=== PATIENT | male | born 1940 | race Caucasian/White ===

== ENCOUNTER → 2017-08-21 | Outpatient (CLI) | payer MEDICARE ==
--- NOTE | 2017-08-21 11:54 | CT ---
EXAMINATION TYPE: CT abdomen pelvis w con DATE OF EXAM: 08/21/2017 COMPARISON: NONE HISTORY: Patient complains of periumbilical to RUQ pain and constipation. CT DLP: 1618 mGycm Automated exposure control for dose reduction was used. TECHNIQUE: Helical acquisition of images from the lung bases through the pelvis have been completed. CONTRAST: Performed with Oral Contrast and with IV Contrast, patient injected with 100 mL of Omnipaque 300. FINDINGS: There is no pleural or pericardial effusion. There are coronary artery calcifications prese nt. LUNG BASES: Some minimal dependent atelectatic changes are present. AORTA: No significant abnormality is appreciated. LIVER/GB: There are multiple hypodense foci scattered within the liver which are subcentimeter in siz e, approximately 10 foci, these are statistically likely represent cysts. Gallbladder is normal. PANCREAS: No significant abnormality is seen. SPLEEN: No significant abnormality is seen. ADRENALS: No significant abnormality is seen. KIDNEYS: There is a cortical cyst in the anterior aspect of the mid to lower pole of the left kidney measuring 2.2 cm. Cystic focus extending along the renal pelvis may represent a parapelvic cyst on th e left. Difficult to exclude a luminal abnormality at the upper pole calyx seen on axial image 39 and 38 measuring only 1 to 2 mm in size, this could be artifact REPRODUCTIVE ORGANS: Prostate is enlarged and shows associated calcification. BOWEL: No significant abnormality is seen. The appendix is normal. Scattered diverticular changes as sociated with the descending and sigmoid colon. Possible small inguinal hernias left greater than rig ht. Contrast courses into the proximal ascending colon shows a somewhat shelf like pattern. FREE AIR: No Free Air visible. ASCITES: None visible. Small umbilical hernia contains fat. PELVIC ADENOPATHY: None visualized. RETROPERITONEAL ADENOPATHY: No Retroperitoneal Adenopathy visible. URINARY BLADDER: Urinary bladder shows a thickened wall likely due to chronic outlet obstruction, di fficult to exclude a mucosal lesion. OSSEOUS STRUCTURES: Degenerative disc changes are present in the visualized spine, vacuum phenomenon present at L5-S1, facet arthropathy at the lower lumbar levels.. IMPRESSION: SOMEWHAT UNUSUAL APPEARANCE OF THE CONTRAST COURSING TO THE PROXIMAL DESCENDING COLON MAY BE RELATED TO LOCAL STOOL, DIFFICULT TO EXCLUDE A MUCOSAL LESION, BOWEL SURVEILLANCE HAS NOT BEEN PERFORMED THEN IT SHOULD BE CONSIDERED. FINDINGS IN THE KIDNEY DESCRIBED ON THE LEFT, CONSIDER FOLLOW-UP DEDICAT ED IMAGING. Diverticulosis. Prostatic enlargement and findings in the urinary bladder is described. A dditional findings above.
== END | disposition home or self-care (01) ==
LOC: RADCTMAIN 09:29
PROVIDERS: ATTEND Internal Medicine
DX: K57.90 Diverticulosis of intestine, part unspecified, without perforation or abscess without bleeding (principal); N32.89 Other specified disorders of bladder; N40.0 Benign prostatic hyperplasia without lower urinary tract symptoms
CPT/HCPCS: 74177; Q9967

== ENCOUNTER 2017-09-10 09:42 | Day surgery (SDC) | payer MEDICARE ==
[2017-09-08 13:18] VITALS: BMI 27.0
[~2017-09-10 09:42] MED LIST: LACTATED RINGERS 1,000 ML IV SCH; LIDOCAINE 1% 20 ML VIAL (10MG/ML) FOR IV START INTRADERMA PRN
[2017-09-10 10:25] VITALS: TEMP 97.1
[2017-09-10] MEDS ORDERED: LIDOCAINE 1% 20 ML VIAL (10MG/ML) FOR IV START INTRADERMA ONE (10:37)
[2017-09-10] MEDS ORDERED: PROPOFOL 10 MG/ML 20 ML VIAL IV ONE (11:00)
[2017-09-10] MEDS ORDERED: LIDOCAINE 1% INJ 10MG/ML (20 ML MDV) ONE (11:00)
--- NOTE | 2017-09-10 11:17 | P.PCN ---
Date of Procedure: 09/10/17 Procedure(s) Performed: BRIEF HISTORY: Patient is a 77-year-old pleasant white male, scheduled for an elective colonoscopy as a part of evaluation of prior history of colon polyps. His last colonoscopy was 5 years. PROCEDURE PERFORMED: Colonoscopy. PREOPERATIVE DIAGNOSIS: History of colon polyps. IV sedation per Anesthesia. PROCEDURE: After informed consent was obtained, the patient, was brought into the endoscopy unit. IV sedation was administered by Anesthesia under continuous monitoring. Digital rectal examination was normal. Initially the Olympus CF- 160 flexible video colonoscope was then inserted in the rectum, gradually advanced into the cecum without any difficulty. Careful examination was performed as the scope was gradually being withdrawn. Ileocecal valve and the appendiceal orifice were visualized and appeared normal. Prep was excellent. Mucosa of the cecum, ascending colon, transverse colon, descending colon, sigmoid colon, and rectum appeared normal. Scattered sigmoidal diverticulosis seen.Retroflexion was performed in the rectum and no lesions were seen. The patient tolerated the procedure well. IMPRESSION: Normal-appearing colon from rectum to cecum with no evidence of colorectal neoplasia. Scattered sigmoidal diverticulosis. RECOMMENDATIONS: Findings of this examination were discussed with the patient as well as his family. He was advised to fhave a repeat surveillance colonoscopy in 5 years because of the prior history of colon polyps.
[2017-09-10 11:24] VITALS: RESP 16
[2017-09-10 12:04] VITALS: BP 151/80; PULSE 68
== END 2017-09-10 12:12 | disposition home or self-care (01) ==
LOC: ORWHC2ENDO 09:42
PROVIDERS: ATTEND Internal Medicine Gastroenterology
DX: Z12.11 Encounter for screening for malignant neoplasm of colon (principal); Z86.010 Personal history of colon polyps; K57.30 Diverticulosis of large intestine without perforation or abscess without bleeding; I10 Essential (primary) hypertension; E78.5 Hyperlipidemia, unspecified; N40.0 Benign prostatic hyperplasia without lower urinary tract symptoms; Z79.899 Other long term (current) drug therapy
CPT/HCPCS: J2001; J2704; G0105; 45378